=== PATIENT | female | born 1945 | race Caucasian/White ===

== ENCOUNTER 2023-08-30 12:08 | Emergency (ER) | payer MEDICARE, SELFPAY ==
--- NOTE | ~2023-08-30 | CT_ITS ---
EXAMINATION: CT HEAD WITHOUT CONTRAST CLINICAL INFORMATION: Trauma COMPARISON: None TECHNIQUE: Contiguous axial imaging was performed from the skull base to vertex without intravenous administration of contrast. This CT examination was performed using dose optimization techniques as appropriate, variously including the following: *Automated exposure control *Adjustment of mA and/or kV according to patient size (this includes techniques or standardized protocols for targeted exams where dose is matched to indication/reason for exam; i.e. extremities or head) *Use of iterative reconstruction technique DLP: 601.96 mGy-cm FINDINGS: There is no evidence of acute intracranial hemorrhage or territorial infarction. Chronic white matter small vessel ischemic changes. Cerebral atrophy with commensurate ventricular changes. No abnormal mass effect or midline shift is seen. Lanier to white matter differentiation is well preserved. No extra-axial fluid collections are identified. The ventricles are normal in size. There is no abnormal attenuation within the brain parenchyma. Soft tissue swelling with defect and subcutaneous air overlying the high cortical left frontal lobe without underlying osseous defect. The osseous structures and soft tissues are normal. The mastoid air cells and visualized portions of the paranasal sinuses are well aerated. Atherosclerotic calcifications. CT/CT cervical spine wo IV con IMPRESSION: 1. No acute intracranial pathology. 2. Chronic white matter small vessel ischemic changes. 3. Soft tissue swelling with defect and subcutaneous air overlying the high cortical left frontal lobe without underlying osseous defect. EXAMINATION: Noncontrast CT scan of the cervical spine. INDICATION: Trauma COMPARISON: None. TECHNIQUE: Helical, multidetector axial images were obtained from the occiput to the upper thorax. Coronal and sagittal reformats of the cervical spine were provided for interpretation. DLP: 213.71 mGy-cm FINDINGS: No acute fractures or dislocations of the cervical spine are seen. Very slight grade 1 anterolisthesis of C3 on C4. Multilevel degenerative changes of the cervical spine with slight reversal of curvature. Anatomic alignment and positioning of the vertebral bodies and posterior elements is noted. The atlantoaxial joint and craniovertebral articulations are normal without evidence of subluxation. There is no prevertebral soft tissue swelling. Visualized portions of the lungs are unremarkable IMPRESSION: 1. No acute visible fracture or dislocation. 2. Very slight grade 1 anterolisthesis of C3 on C4. 3. Multilevel degenerative changes of the cervical spine with slight reversal of curvature.
[2023-08-30 12:11] VITALS: BP 123/81; PULSE 74; RESP 20; TEMP 36.6; O2SAT 98; BMI 25.7
--- NOTE | 2023-08-30 12:13 | ED_ITS ---
HPI - General Adult General Chief complaint: Fall Stated complaint: Fall today - lac L side of head Time Seen by Provider: 08/30/23 20:17 Source: patient Mode of arrival: ambulatory Limitations: no limitations History of Present Illness ED Provider: Brando Pena PA-c HPI narrative: 77-year-old female who states no pmh presents to the ED for left frontal laceration after falling unto the ground and hitting head. Patient states she was reaching for objects while sitting down while reaching she fell off the chair and hit her head on the refrigerator which caused use laceration. Patient denies any loss of consciousness. Patient denies any abdominal pain, chest pain, shortness of breath before falling. Related Data Allergies Allergy/AdvReac Type Severity Reaction Status Date / Time IV contrast AdvReac Intermediate Nausea and Uncoded 08/30/23 12:17 Vomiting Review of Systems 2 Review of Systems: Left frontal lobe laceration Yes all other systems are reviewed and are negative PMFSH Social History Social History Smoked in Last 30 Days: No Use of substances other than those prescribed or required for medical reasons: No Advance Directives: No Advance Directives Information Provided: No Do you have a plan to hurt others: No Plan Physical Exam ED Vital Signs: Vital Signs - 24 hr 08/30/23 12:11 08/30/23 18:44 Temperature 97.9 F 97.9 F Pulse Rate 74 63 Respiratory Rate 20 18 Blood Pressure 123/81 136/67 Pulse Oximetry 98 100 Oxygen Delivery Method Room Air Room Air BMI result Body Mass Index 25.7 Const General: cooperative, healthy appearing, comfortable, no acute distress, well developed, alert, awake and Physically active Orientation/consciousness: oriented to person, oriented to place, oriented to time and patient oriented x3 HENMT Head: Yes normal to inspection, Yes No palpable skull fracture present and Yes normocephalic Head images: 2 1. Wide large laceration. Active bleeding. No bone exposure. Eyes General: appearance normal, both eyes and all related structures Neck Neck: Yes normal visual inspection, Yes full ROM, Yes no lymphadenopathy, Yes no meningeal signs, Yes trachea midline, Yes supple, No anterior neck swelling and No tender Chest Chest palpation & inspection: normal inspection of the chest and normal palpation of entire chest wall Resp Effort & Inspection: normal respiratory effort and able to speak in complete sentences Auscultation: clear to auscultation bilaterally Cardio Jugular venous distension: no JVD Heart sounds: S1 normal heart sound present and S2 normal heart sound present GI Inspection: Yes normal to inspection and No abdominal wall ecchymosis Palpation (GI): Soft to palpation, not firm, nontender, no guarding and not rigid General: No CVA tenderness and Yes no CVA tenderness Back/Spine/Pelvis Back: no CVA tenderness, No CVA tenderness and No back tenderness Skin General skin exam: no rashes or lesions noted, elasticity normal and turgor normal Neuro General: oriented to person, oriented to place, oriented to time, patient oriented x3, gait normal, tone normal, moves all extremities, Normal light touch and pain sensation, no meningeal signs, no focal motor deficits, CN's II-XI intact bilaterally and normal sensation to monofilament Extrem General: Yes normal to inspection and Yes full ROM Psych Appearance: grossly normal, well kempt and not disheveled Course Course Course Narrative: RME- 77 year old female presents for evaluation of a large head laceration. She fell off of a chair that she was standing on. Denies loss of consciousness. She has not anticoagulated. The wound will require closure. Plan for CT brain and C-spine. Will need tetanus booster Medications Administered Discontinued Medications Generic Name Dose Route Start Last Admin Trade Name Freq PRN Reason Stop Dose Admin Diphtheria/Tetanus/Acell Pertussis 0.5 ml 08/30/23 12:16 08/30/23 18:57 Diphth,Pertus(Acell),Tet Adult 0.5 Ml Syringe IM 08/30/23 12:17 0.5 ml .ONCE ONE Administration Lidocaine/Epinephrine 10 ml 08/30/23 21:08 08/30/23 21:34 Lidocaine Hcl 1% Pf/Epi 1:200,000 10 Ml Vial INFILTRATI 08/30/23 21:09 10 ml ONCE ONE Administration Medical Decision Making Medical Decision Making MDM Narrative: 77-year-old female presents to ED for head trauma after falling to the ground while reaching for an object. Patient hit head on a ridge. Patient denies any other complaints. Patient given Tdap. CT scan negative for any brain bleed skull fracture or neck fracture. 10 mL of 1% lidocaine with epinephrine injected into large 4 in wound. Twelve cady placed. Patient explained worrisome signs and informed to return to the ED if she has a Differential Diagnosis Differential Diagnoses: The differential diagnosis associated with the presentation includes (Skull fracture, cervical spine fracture) Admission/Observation Consideration of admission/observation: Escalation of care including admission/observation considered Independent Interpretation I performed an independent interpretation of an: CT Scan Radiology Impression Discussion of test interpretation with radiology: I have reviewed the radiologist's reading. External Record Review External record reviewed: Other (prior visits) Discharge Plan Discharge Clinical Impression: Laceration of scalp Patient Disposition: Home, Self-Care Instructions: Laceration (ED), Staple Care (ED) Additional Instructions: Return to the ED in 10 days for cady removal. Keep area dry. Return to the ED immediately for any nausea, vomiting, headache, wound drainage, pus discharge, foul odor, redness, chest pain, abdominal pain, dizziness, rectal bleeding, vomiting blood, or any other concerning symptoms. Recommend follow-up with PCP Interventions: ED Discharge Assessment Last Done: 08/30/23 22:12 Discharge Date/Time: 08/30/23 22:13 Print Language: [place]
[2023-08-30 18:44] VITALS: BP 136/67; PULSE 63; RESP 18; TEMP 36.6; O2SAT 100
[2023-08-30] MEDS: Diphth,Pertus(ACell),Tet Adult 0.5 ML SYRINGE IM (18:57)
[2023-08-30 22:12] VITALS: BP 128/69; PULSE 69; RESP 16; TEMP 36.8; O2SAT 99
== END 2023-08-30 22:13 | disposition home or self-care (01) ==
PROVIDERS: Emergency Provider Internal Medicine
DX: S01.01XA Laceration without foreign body of scalp, initial encounter (principal); W07.XXXA Fall from chair, initial encounter; Y93.89 Activity, other specified; Y92.000 Kitchen of unspecified non-institutional (private) residence as the place of occurrence of the external cause; Y99.9 Unspecified external cause status; Z23 Encounter for immunization
CPT/HCPCS: 12002; 70450; 72125; 90471; 90715; 99284